=== PATIENT | female | born 1990 | race Two or more races ===

== ENCOUNTER 2022-10-23 18:03 | Emergency (ER) | payer OTHER ==
[~2022-10-23] VITALS: Ht 160 cm; Wt 69.4 kg
[2022-10-23] MEDS ORDERED: ZOFRAN8 MG PO (18:11)
[2022-10-23] MEDS ORDERED: LEVOTHYROXINE25 MCG PO (18:12)
[2022-10-23] MEDS ORDERED: PRENA1 TRUE CO1 EACH (18:12)
== END 2022-10-23 21:25 | disposition home or self-care (01) ==
LOC: ER 18:03
DX: O21.0 Mild hyperemesis gravidarum (principal)

== ENCOUNTER 2023-02-01 13:35 | Outpatient (CLI) | payer OTHER ==
[~2023-02-01 13:35] MED LIST: LEVOTHYROXINE25 MCG PO; PRENA1 TRUE CO1 EACH; ZOFRAN8 MG PO
== END 2023-02-02 09:10 | disposition home or self-care (01) ==
LOC: OBS/DEL 13:35
PROVIDERS: Obstetrics & Gynecology; ATTEND Specialist
DX: O26.893 Other specified pregnancy related conditions, third trimester (principal); O9A.213 Injury, poisoning and certain other consequences of external causes complicating pregnancy, third trimester; S80.12XA Contusion of left lower leg, initial encounter; Z3A.29 29 weeks gestation of pregnancy; W07.XXXA Fall from chair, initial encounter; Y93.89 Activity, other specified; Y92.89 Other specified places as the place of occurrence of the external cause; Y99.8 Other external cause status

== ENCOUNTER 2023-04-02 13:30 | Inpatient (IN) | payer OTHER ==
[~2023-04-02] VITALS: Ht 160 cm; Wt 78.9 kg
[2023-04-13 09:19] LABS: HEMATOCRIT 35.5 % (36.0-45.00); HEMOGLOBIN 11.3 g/dL (12.0-15.00); MEAN CELL VOLUME 77.5 fL (80.00-100.00); MEAN CORPUSCULAR HEMOGLOBIN 24.6 pg (27.00-32.0); MEAN CORPUSCULAR HGB CONC 31.8 g/dl (32.0-36.0); PLATELET COUNT 281 K/uL (150-450); RED BLOOD COUNT 4.58 M/uL (4.00-6.00)
[2023-04-13 09:37] LABS: URINE APPEARANCE Clear; URINE BILIRRUBIN Negative (NEGATIVE); URINE BLOOD Negative; URINE COLOR Yellow; URINE GLUCOSE Negative (NEGATIVE); URINE LEUKOCYTE Small; URINE NITRATE Negative; URINE PROTEIN Negative (NEGATIVE); URINE UROBILINOGEN 0.2 E.U./dl
[2023-04-13 09:42] LABS: URINE EPITHELIAL CELLS 17.9 uL (0.0-38.8); URINE RBC 4.3 uL (0.0-20.8); URINE WBC 14.3 uL (0.0-23.2)
[2023-04-13 09:46] LABS: ALBUMIN 2.3 gm/dL (3.4-5.0); BILIRUBIN TOTAL 0.12 mg/dL (0.3-1.2); CREATININE SERUM 0.65 mg/dL (0.55-1.02); GFR 105.63; GLOBULINA 3.6 G/DL (2.4-3.5); POTASSIUM 4.27 mEq/L (3.5-5.1); TOTAL PROTEIN 5.9 gm/dL (6.4-8.2)
[2023-04-13 10:22] LABS: INR < 0.93; PARTIAL THROMBOPLASTIN TIME 24.3 SECONDS (22.0-34.0); PROTHROMBIN TIME 9.4 SECONDS (9.0-11.5)
[2023-04-13 21:13] LABS: ABG PH 7.266 (7.35-7.45); ABG PO2 33.6 mmHg (80-100); ABG pCO2 36.2 mmHg (35-45); BASE EXCESS -9.9 mmol/l; BICARBONATE 16.1 mmol/l (23-25); SaO2 52.5 %; Tco2 17.2 mmol/l
[2023-04-13 21:14] LABS: o2 21 %
== END 2023-04-15 16:39 | disposition home or self-care (01) | DRG 807 ==
LOC: LDR 04-13 05:38 → OB/GYN 04-13 17:13
PROVIDERS: ADMIT Specialist; ATTEND Specialist
PROC: 10E0XZZ Delivery of Products of Conception, External Approach (ICD-10-PCS; principal; 2023-04-13)
PROC: 0KQM0ZZ Repair Perineum Muscle, Open Approach (ICD-10-PCS; 2023-04-13)
PROC: 4A1HXCZ Monitoring of Products of Conception, Cardiac Rate, External Approach (ICD-10-PCS; 2023-04-13)
DX: O70.1 Second degree perineal laceration during delivery (principal); Z37.0 Single live birth; Z3A.39 39 weeks gestation of pregnancy; Z20.822 Contact with and (suspected) exposure to COVID-19